=== PATIENT | male | born 1965 | race Caucasian/White ===

== ENCOUNTER → 2016-05-21 | Outpatient (REF) | payer OTHER | LOC: M LAB REF 12:46 | PROVIDERS: ATTEND Internal Medicine Nephrology | DX: Z94.0 Kidney transplant status (principal) ==

== ENCOUNTER → 2016-06-21 | Outpatient (REF) | payer OTHER | LOC: M LAB REF 13:00 | PROVIDERS: ATTEND Internal Medicine Nephrology | DX: Z94.0 Kidney transplant status (principal) ==

== ENCOUNTER → 2016-08-14 | Outpatient (REF) | payer OTHER | LOC: M LAB REF 13:16 | PROVIDERS: ATTEND Internal Medicine Nephrology | DX: Z94.0 Kidney transplant status (principal) ==

== ENCOUNTER → 2016-11-12 | Outpatient (REF) | payer OTHER | LOC: M LAB REF 10:44 | PROVIDERS: ATTEND Internal Medicine Nephrology | DX: Z94.0 Kidney transplant status (principal); Z48.22 Encounter for aftercare following kidney transplant; E78.00 Pure hypercholesterolemia, unspecified ==

== ENCOUNTER → 2016-12-05 | Outpatient (REF) | payer OTHER | LOC: M LAB REF 08:05 | PROVIDERS: ATTEND Internal Medicine Nephrology | DX: E78.00 Pure hypercholesterolemia, unspecified (principal); Z48.22 Encounter for aftercare following kidney transplant ==

== ENCOUNTER → 2017-01-03 | Outpatient (CLI) | payer OTHER ==
[2017-01-03 13:01] LABS: BASO % 0.7 % (0.0-1.0); EOS # 0.2 10^3/uL (0.0-0.50); EOS % 2.9 % (0.0-3.0); IMMATURE GRANULOCYTE % 0.2 % (0-0); LYMPH # 0.9 10^3/uL (1.5-4.5); LYMPH % 15.8 % (24.0-44.0); MEAN CORPUSCULAR HEMOGLOBIN 31.4 pg (27.0-33.0); MEAN CORPUSCULAR HGB CONC 33.9 g/dl (32.0-36.5); MEAN CORPUSCULAR VOLUME 92.6 fl (80.0-96.0); MONO # 0.7 10^3/uL (0.0-0.8); MONO % 11.6 % (0.0-5.0); NEUTROPHILS # 4.1 10^3/uL (1.8-7.7); NEUTROPHILS % 68.8 % (36.0-66.0); PLATELET COUNT, AUTOMATED 169 10^3/uL (150-450); RED CELL DISTRIBUTION WIDTH 12.8 % (11.5-14.5); WHITE BLOOD COUNT 5.9 10^3/uL (4.0-10.0)
[2017-01-03 14:33] LABS: ALBUMIN 3.4 GM/DL (3.2-5.2); ANION GAP 10 MEQ/L (8-16); BLOOD UREA NITROGEN 24 MG/DL (7-18); CALCIUM LEVEL 9.3 MG/DL (8.5-10.1); CARBON DIOXIDE LEVEL 26 MEQ/L (21-32); CHLORIDE LEVEL 105 MEQ/L (98-107); CHOLESTEROL LEVEL 153 MG/DL (<200); CREATININE FOR GFR 1.17 MG/DL (0.70-1.30); GLOMERULAR FILTRATION RATE > 60.0 (>60); GLUCOSE, FASTING 120 MG/DL (70-105); PHOSPHORUS LEVEL 2.5 MG/DL (2.5-4.9); POTASSIUM SERUM 3.7 MEQ/L (3.5-5.1); SODIUM LEVEL 141 MEQ/L (136-145); TRIGLYCERIDES LEVEL 193 MG/DL (<150)
== END ==
LOC: M SMT 08:11
PROVIDERS: ATTEND Internal Medicine Nephrology
DX: E78.00 Pure hypercholesterolemia, unspecified (principal); Z94.0 Kidney transplant status; Z48.22 Encounter for aftercare following kidney transplant

== ENCOUNTER → 2017-05-02 | Outpatient (REF) | payer OTHER ==
[2017-05-02 14:23] LABS: CHOLESTEROL LEVEL 190 MG/DL (<200); CHOLESTEROL RISK RATIO 5.277 (<5); HDL CHOLESTEROL 36 MG/DL (>40); NON-HDL-C 154 MG/DL; TRIGLYCERIDES LEVEL 375 MG/DL (<150)
[2017-05-05 00:06] LABS: FK 506 (TACROLIMUS) LABCORP 3.7 ng/mL (2.0-20.0)
== END ==
LOC: M LAB REF 13:46
DX: Z94.0 Kidney transplant status (principal); Z48.22 Encounter for aftercare following kidney transplant; E78.00 Pure hypercholesterolemia, unspecified

== ENCOUNTER → 2017-09-22 | Outpatient (REF) | payer OTHER ==
[2017-09-22 13:48] LABS: CHOLESTEROL LEVEL 172 MG/DL (<200); CHOLESTEROL RISK RATIO 4.526 (<5); HDL CHOLESTEROL 38 MG/DL (>40); NON-HDL-C 134 MG/DL; TRIGLYCERIDES LEVEL 275 MG/DL (<150)
[2017-09-25 00:09] LABS: FK 506 (TACROLIMUS) LABCORP 3.5 ng/mL (2.0-20.0)
== END ==
LOC: M LAB REF 13:14
DX: E78.00 Pure hypercholesterolemia, unspecified (principal); Z94.0 Kidney transplant status

== ENCOUNTER → 2018-01-28 | Outpatient (REF) | payer OTHER ==
[2018-01-30 14:13] LABS: FK 506 (TACROLIMUS) LABCORP 2.3 ng/mL (2.0-20.0)
== END ==
LOC: M LAB REF 13:07
DX: Z94.0 Kidney transplant status (principal)

== ENCOUNTER → 2018-02-09 | Outpatient (REF) | payer OTHER ==
[2018-02-09 17:46] LABS: TOTAL PROTEIN,RANDOM URINE 90.8 MG/DL (0.0-12.0)
[2018-02-09 17:46] LABS: CREATININE,RANDOM URINE 97.7 MG/DL
== END ==
LOC: M LAB REF 17:04
DX: R80.9 Proteinuria, unspecified (principal)

== ENCOUNTER → 2018-05-12 | Outpatient (REF) | payer OTHER ==
[2018-05-12 14:33] LABS: CHOLESTEROL RISK RATIO 5.058 (<5)
== END ==
LOC: M LAB REF 13:02
PROVIDERS: ATTEND Internal Medicine Nephrology
DX: Z94.0 Kidney transplant status (principal); Z48.22 Encounter for aftercare following kidney transplant; E78.00 Pure hypercholesterolemia, unspecified

== ENCOUNTER → 2018-07-07 | Outpatient (REF) | payer OTHER ==
[2018-07-07 16:10] LABS: ALBUMIN 3.4 GM/DL (3.2-5.2); BILIRUBIN,DIRECT 0.1 MG/DL (0.0-0.2); BILIRUBIN,TOTAL 0.6 MG/DL (0.2-1.0); TOTAL PROTEIN 6.7 GM/DL (6.4-8.2)
== END ==
LOC: M LAB REF 12:59
PROVIDERS: ATTEND Internal Medicine Nephrology
DX: Z94.0 Kidney transplant status (principal); Z48.22 Encounter for aftercare following kidney transplant; R80.9 Proteinuria, unspecified

== ENCOUNTER → 2018-07-15 | Outpatient (REF) | payer OTHER | LOC: M LAB REF 17:15 | PROVIDERS: ATTEND Internal Medicine Nephrology | DX: Z94.0 Kidney transplant status (principal) ==

== ENCOUNTER → 2018-08-27 | Outpatient (REF) | payer OTHER ==
[2018-08-27 13:41] LABS: ALBUMIN 3.8 GM/DL (3.2-5.2); BILIRUBIN,DIRECT 0.1 MG/DL (0.0-0.2); BILIRUBIN,TOTAL 0.5 MG/DL (0.2-1.0); TOTAL PROTEIN 7.2 GM/DL (6.4-8.2)
== END ==
LOC: M LAB REF 13:13
PROVIDERS: ATTEND Internal Medicine Nephrology
DX: Z48.22 Encounter for aftercare following kidney transplant (principal); Z94.0 Kidney transplant status; R80.9 Proteinuria, unspecified

== ENCOUNTER → 2018-10-20 | Outpatient (REF) | payer OTHER | LOC: M LAB REF 12:58 | PROVIDERS: ATTEND Internal Medicine Nephrology | DX: Z94.0 Kidney transplant status (principal) ==

== ENCOUNTER → 2018-11-19 | Outpatient (REF) | payer OTHER | LOC: M LAB REF 12:52 | PROVIDERS: ATTEND Internal Medicine Nephrology | DX: Z94.0 Kidney transplant status (principal) ==

== ENCOUNTER → 2018-12-25 | Outpatient (REF) | payer OTHER | LOC: M LAB REF 12:41 | PROVIDERS: ATTEND Internal Medicine Nephrology | DX: Z94.0 Kidney transplant status (principal) ==

== ENCOUNTER → 2019-01-21 | Outpatient (REF) | payer OTHER | LOC: M LAB REF 13:18 | PROVIDERS: ATTEND Internal Medicine Nephrology | DX: Z94.0 Kidney transplant status (principal) ==

== ENCOUNTER → 2019-02-18 | Outpatient (REF) | payer OTHER | LOC: M LAB REF 13:46 | PROVIDERS: ATTEND Internal Medicine Nephrology | DX: Z94.0 Kidney transplant status (principal) ==

== ENCOUNTER → 2019-03-26 | Outpatient (REF) | payer OTHER ==
[2019-03-26 15:01] LABS: ALBUMIN 3.5 GM/DL (3.2-5.2); BLOOD UREA NITROGEN 22 MG/DL (7-18); CALCIUM LEVEL 9.2 MG/DL (8.5-10.1); CARBON DIOXIDE LEVEL 26 MEQ/L (21-32); CHLORIDE LEVEL 109 MEQ/L (98-107); CREATININE FOR GFR 0.98 MG/DL (0.70-1.30); GLOMERULAR FILTRATION RATE > 60.0 (>56); GLUCOSE, FASTING 85 MG/DL (70-100); MAGNESIUM LEVEL 1.7 MG/DL (1.8-2.4); POTASSIUM SERUM 4.1 MEQ/L (3.5-5.1); SODIUM LEVEL 142 MEQ/L (136-145); URIC ACID 7.8 MG/DL (3.5-7.2)
== END ==
LOC: M LAB REF 13:59
PROVIDERS: ATTEND Internal Medicine Nephrology
DX: Z48.22 Encounter for aftercare following kidney transplant (principal); I15.0 Renovascular hypertension; I48.0 Paroxysmal atrial fibrillation; E83.42 Hypomagnesemia

== ENCOUNTER → 2019-05-13 | Outpatient (REF) | payer OTHER ==
[2019-05-14 11:03] LABS: URINE TOTAL PROTEIN 76.7 MG/DL (0-12)
[2019-05-15 01:11] LABS: TOTAL PROTEIN 24 HOUR URINE 1418.9 MG/24HR (50-150)
== END ==
LOC: M LAB REF 09:49
PROVIDERS: ATTEND Nurse Practitioner Family
DX: Z94.0 Kidney transplant status (principal); R80.9 Proteinuria, unspecified

== ENCOUNTER 2019-05-18 13:53 | Inpatient (IN) | payer OTHER ==
[~2019-05-18] VITALS: Ht 172.7 cm; Wt 75.1 kg
[2019-05-18] MEDS ORDERED: CEFD1CAP8 PO (14:05)
[2019-05-18 15:21] LABS: HEMATOCRIT 37.5 % (42.0-52.0); HEMOGLOBIN 12.9 g/dl (13.5-17.5); MEAN CORPUSCULAR HEMOGLOBIN 31.9 pg (27.0-33.0); MEAN CORPUSCULAR HGB CONC 34.4 g/dl (32.0-36.5); MEAN CORPUSCULAR VOLUME 92.6 fl (80.0-96.0); PLATELET COUNT, AUTOMATED 178 10^3/uL (150-450); RED BLOOD COUNT 4.05 10^6/uL (4.30-6.10); WHITE BLOOD COUNT 7.5 10^3/uL (4.0-10.0)
[2019-05-18 15:47] LABS: BLOOD UREA NITROGEN 31 MG/DL (7-18); CALCIUM LEVEL 9.1 MG/DL (8.5-10.1); CARBON DIOXIDE LEVEL 26 MEQ/L (21-32); CHLORIDE LEVEL 111 MEQ/L (98-107); CREATININE FOR GFR 1.14 MG/DL (0.70-1.30); GLOMERULAR FILTRATION RATE > 60.0 (>56); GLUCOSE, FASTING 117 MG/DL (70-100); POTASSIUM SERUM 4.5 MEQ/L (3.5-5.1); SODIUM LEVEL 139 MEQ/L (136-145)
[2019-05-18 16:06] LABS: C REACTIVE PROTEIN QUANTITATIV < 0.30 MG/DL (0.00-0.30)
[2019-05-18 17:00] LABS: ERYTHROCYTE SEDIMENTATION RATE 34 mm/hr (0-20)
--- NOTE | 2019-05-18 17:11 | REP ---
RIGHT HAND SERIES, FOUR VIEWS: Four views right hand performed. There is an old fracture of the mid scaphoid bone. There is no bony bridging with sclerotic margins along the fracture line and persistent lucency. There appears to be a small osseous fragment at the lateral margin of the fracture. This measures about 5 to 6 mm. No acute fracture or dislocation is seen. Joint spaces appear unremarkable. 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 No acute fracture or dislocation. Electronically Signed by Jacob Lopez MD 05/18/2019 08:02 P
[2019-05-18] MEDS ORDERED: POTA10CA32 PO (18:03)
[2019-05-18] MEDS ORDERED: PRED5TA PO (18:03)
[2019-05-18] MEDS ORDERED: VITAD1000T PO (18:03)
[2019-05-18] MEDS ORDERED: CAND16TA7 PO (18:03)
[2019-05-18] MEDS ORDERED: ROCA0.5C PO (18:03)
[2019-05-18] MEDS ORDERED: MAGN1CAP PO (18:03)
[2019-05-18] MEDS ORDERED: MYCO500T PO (18:03)
[2019-05-18] MEDS ORDERED: TAMS1CAP17 PO (18:03)
[2019-05-18] MEDS ORDERED: METO1TAB87 PO (18:03)
[2019-05-18] MEDS ORDERED: ASPI81TA26 PO (18:03)
[2019-05-18] MEDS ORDERED: VITMTA PO (18:03)
[2019-05-18] MEDS ORDERED: CINA30TA5 PO (18:03)
[2019-05-18] MEDS ORDERED: TACR1CAP3 PO (18:03)
[2019-05-18 18:46] VITALS: BP 140/95
--- NOTE | 2019-05-18 19:15 | HPEPDOC ---
General Date of Admission 05/18/19 Date of Service: May 18, 2019 Chief Complaint The patient is a 54-year-old male admitted with a reason for visit of Hand Problem. Source: Patient History of Present Illness 54 year old male presented to the ED with increasing pain and swelling of the right hand. Patient sustained an injury with a ranch 2weeks ago at the tip of the middle finger of the right hand which has now healed. He noted swelling of the finger about 5 days after sustaining the cut. Swelling of the finger started 10 days ago which spread to the hand. He was prescribed cefdinir by Dr Leiva which he took for 5 days and today was the last day of antibiotic but today noted the swelling has increased along with the pain. He is having difficulty in bending the fingers so came to the ED. He was admitted for hand cellulitis in an immunocompromised patient who failed oral outpatient antibiotics. Home Medications Scheduled Aspirin (Aspirin EC) 81 Mg Tablet.dr, 162 MG PO QHS, (Reported) Calcitriol (Rocaltrol) 0.5 Mcg Capsule, 0.5 MCG PO Q2D, (Reported) PATIENT CANNOT REMEMBER IF HE TOOK TODAY OR DUE TOMORROW Candesartan Cilexetil (Candesartan Cilexetil) 16 Mg Tablet, 16 MG PO QHS, (Reported) Cefdinir (Cefdinir) 300 Mg Capsule, 300 MG PO BID, (Reported) FILLED 05/12/19 FOR 7 DAYS Cholecalciferol (Vitamin D3) (Vitamin D3) 1,000 Unit Tablet, 1,000 UNITS PO DAILY, (Reported) Cinacalcet HCl (Cinacalcet HCl) 30 Mg Tablet, 30 MG PO QWEEK, (Reported) SUNDAYS Magnesium Oxide (Magnesium) 500 Mg Capsule, 1,000 MG PO DAILY, (Reported) Metoprolol Tartrate (Metoprolol Tartrate) 25 Mg Tablet, 50 MG PO DAILY, (Reported) Multivitamins (Thera M Plus Tablet) 1 Each Tablet, 1 TAB PO DAILY, (Reported) Mycophenolate Mofetil (Mycophenolate Mofetil) 500 Mg Tablet, 500 MG PO QID, (Reported) Potassium Chloride (Potassium Chloride) 10 Meq Capsule.er, 10 MEQ PO QHS, (Reported) Prednisone (Prednisone) 5 Mg Tablet, 5 MG PO DAILY, (Reported) Tacrolimus (Tacrolimus) 1 Mg Capsule, 2 MG PO BID, (Reported) Tamsulosin Hcl (Tamsulosin HCl) 0.4 Mg Capsule, 0.4 MG PO QHS, (Reported) Allergies Coded Allergies: codeine (Verified Allergy, Unknown, 05/18/19) morphine (Verified Allergy, Unknown, 05/18/19) Past Medical History Medical History 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 First at the age of 22 years in 1987, last in 2009. Recurrence of FSGS in transplanted kidneys leading to recurrent failure. Hypertension GERD. Surgical History 5 kidney transplants Ruptured gallbladder s/p exploratory laparotomy Inguinal hernia tonsillectomy Family History Significant Family History: Diabetes (father) Social History * Smoker: Denies Alcohol: occationally Drugs: denies A-FIB/CHADSVASC A-FIB History Current/History of A-Fib/PAF?: No Review of Systems Constitutional: Denies: Chills, Fever, Night Sweats Eyes: Denies: Pain, Vision change ENT: Denies: Head Aches, Ear Pain, Dysphagia Skin: Denies: Rash, Lesions, Breakdown Pulmonary: Denies: Dyspnea, Cough Cardiovascular: Denies: Chest Pain, Palpitations, Orthopnea, Paroxysmal Noc. Dyspnea, Lt Headedness Gastrointestinal: Denies: Nausea, Vomiting, Abdominal Pain, Diarrhea Musculoskeletal: Reports: Hand Pain (right hand pain and swelling) Neurological: Denies: Weakness, Numbness, Change in speech, Confusion Physical Examination General Exam: Positive: Alert, Cooperative, No Acute Distress Eye Exam: Positive: PERRLA, Conjunctiva & lids normal, EOMI; Negative: Sclera icteric ENT Exam: Positive: Atraumatic, Mucous membr. moist/pink, Pharynx Normal Neck Exam: Positive: Supple; Negative: JVD, thyromegaly Chest Exam: Positive: Clear to auscultation, Normal air movement Heart Exam: Positive: Rate Normal, Regular Rhythm, Normal S1, Normal S2; Negative: Murmurs, Rubs Abdomen Exam: Positive: Normal bowel sounds, Soft; Negative: Tenderness, Hepatospenomegaly Extremity Exam: Positive: Edema (in right hand), Normal pulses, Tenderness (right hand), Swelling (right hand swelling); Negative: Clubbing, Cyanosis Skin Exam: Positive: Lesion (healed cut in the middle finger right hand) Neuro Exam: Positive: Normal Gait, Normal Speech, Cranial Nerves 3-12 NL, Reflexes 2+ Psych Exam: Positive: Mental status NL, Mood NL, Oriented x 3 Vital Signs Vital Signs Date Time Temp Pulse Resp B/P (MAP) Pulse Ox O2 Delivery O2 Flow Rate FiO2 05/18/19 13:53 98.6 89 16 139/81 (100) 97 Room Air Laboratory Data Labs 24H Laboratory Tests 2 05/18/19 15:01: Nucleated Red Blood Cells % (auto) 0.0, Erythrocyte Sedimentation Rate 34H, Anion Gap 2L, Glomerular Filtration Rate > 60.0, Calcium Level 9.1, C-Reactive Protein, Quantitative < 0.30 CBC/BMP Laboratory Tests 05/18/19 15:01 Assessment/Plan Right hand cellulitis will give ceftaroline Xray shows old scaphoid fracture. Patient says he broke it as a teenager. Renal transplant status continue mycophenolate, tacro and prednisone Hypertension continue metoprolol and candesartan h/o Atrial flutter s/p ablation continue ASA BPH continue flomax Electrolyte imbalance now normal continue mag and k Plan / VTE VTE Prophylaxis Ordered?: Yes FELICITA JIM MD May 18, 2019 17:28
[2019-05-18] MEDS ORDERED: TAMSULOSIN 0.4 MG CAP PO SCH (21:00)
[2019-05-18] MEDS ORDERED: POTASSIUM CHLORIDE 10 MEQ SR TABLET PO SCH (21:00)
[2019-05-18] MEDS ORDERED: ASPIRIN 81 MG ENTERIC TAB PO SCH (21:00)
[2019-05-18] MEDS ORDERED: CANDESARTAN 16 MG TABLET PO SCH (21:00)
[2019-05-18] MEDS: CEFTAROLINE FOSAMIL 600 MG in D5W MINI-BAG PLUS 50 ML IV SCH (21:07)
[2019-05-18] MEDS: MYCOPHENOLATE MOFETIL 250 MG CAP (J7517) PO SCH (21:10)
[2019-05-18] MEDS: TACROLIMUS 1 MG CAP (J7507) PO SCH (21:10)
[2019-05-18 22:00] VITALS: BP 120/85
[2019-05-18] MEDS ORDERED: ACETAMINOPHEN TAB 650MG DOSE (2X325MG) PO PRN (22:15)
[2019-05-19] MEDS: ACETAMINOPHEN TAB 650MG DOSE (2X325MG) PO PRN ×2 (02:24→06:26)
[2019-05-19 06:00] VITALS: BP 120/84
[2019-05-19] MEDS ORDERED: predniSONE 5 MG TAB PO SCH (09:00)
[2019-05-19] MEDS ORDERED: MULTIVITAMINS/MINERALS THERAP 1 TAB PO SCH (09:00)
[2019-05-19] MEDS ORDERED: METOPROLOL TART 50 MG TAB PO SCH (09:00)
[2019-05-19] MEDS ORDERED: MAGNESIUM OXIDE 400 MG TAB (MAG-OX) PO SCH (09:00)
[2019-05-19] MEDS ORDERED: VITAMIN D 1,000 INTERNATIONAL UNITS TABLET PO SCH (09:00)
[2019-05-19] MEDS: CEFTAROLINE FOSAMIL 600 MG in D5W MINI-BAG PLUS 50 ML IV SCH ×2 (09:10→18:02)
[2019-05-19 09:11] VITALS: BP 120/84
[2019-05-19] MEDS: MYCOPHENOLATE MOFETIL 250 MG CAP (J7517) PO SCH ×3 (09:11→18:02)
[2019-05-19] MEDS: TACROLIMUS 1 MG CAP (J7507) PO SCH (09:12)
--- NOTE | 2019-05-19 11:10 | CR ---
DATE OF CONSULTATION: 05/19/2019 CHIEF COMPLAINT: Right hand redness and swelling. The patient presents after being admitted to the hospital after having a 1-1/2 week long right hand swelling and pain. Patient said it initially started with his middle finger. Says he sustained an injury about 2 weeks prior to the tip of the middle finger that is now healed, but he noticed some swelling about 5 days after the cut. He went to his primary care and had 5 days of antibiotics; however, this did not help the swelling and actually progressed up to encompass his whole hand. Says the pain is only mildly, only about a 3 or 4 out of 10, that is constant, dull ache that is made worse when he moves the fingers. Denies any significant fevers, chills, nausea, vomiting, or drainage. He is, of note, an immune-compromised individual status post kidney transplant. The pain is improved with rest and pain medication. ALLERGIES: The patient has allergy to CODEINE and MORPHINE. MEDICATIONS: - aspirin - calcitriol - candesartan - cefdinir - vitamin D3 - cinacalcet - magnesium oxide - metoprolol - multivitamins - mycophenolate - potassium chloride - prednisone - tacrolimus - tamsulosin PAST MEDICAL HISTORY: FSGS leading to end-stage renal disease (ESRD) at age 20. Status post five kidney transplants, last one in 2009. Hypertension. Gastroesophageal reflux disease (GERD). PAST SURGICAL HISTORY: Five kidney transplants. Ruptured gallbladder. Inguinal hernia. Tonsillectomy. SOCIAL HISTORY: Denies any smoking. Occasional alcohol. Denies illicit drug use. Complete 10-system review was conducted. Pertinent positives and negatives in the history of present illness (HPI). All other systems negative. PHYSICAL EXAM: Patient is awake, alert, oriented. Well dressed. Appropriate affect. Breathing room air. Normocephalic, atraumatic. Left upper extremity: No tenderness to palpation throughout the fingers, wrist, and elbow. Skin is intact. Range of motion, full. Radial pulses 2+ and regular rate. Sensation intact to light touch, superficial sensory branch of radial nerve, median nerve, and ulnar nerve. Positive anterior interosseous nerve (AIN)/posterior interosseous nerve (PIN) to ulnar motor function. Right upper extremity: Diffuse swelling throughout the right hand, most significantly in the middle finger and over the dorsum of the hand. Unable to make a fist due to swelling. Mainly tender to palpation along the middle finger and dorsum of the hand. No tenderness to palpation along the flexor sheath. Minimal erythema at this point. Positive AIN, PIN ulnar motor function. Sensation intact to light touch, superficial sensory branch of radial nerve, median nerve, and ulnar nerve. Radial pulses 2+, regular rate. Skin is intact. LABORATORY: White blood cell count 7.5, hemoglobin 12.9, hematocrit 37.5, platelets 175. ESR 34, and CRP of less than 0.30. 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 I discussed with the patient, at this point in time, I think he is responding appropriately to intravenous (IV) antibiotics. Hopefully, he can be converted over to by mouth antibiotics and, hopefully, discharged later today or the next day. I am not concerned at all for possible tenosynovitis or any sort of fluctuance or abscess that would require drainage. He can followup with his primary care as an outpatient. If he has any questions or concerns with orthopedics, would be more than happy to see him; denies any. We discussed any red flags symptoms to be aware of and the need to return to the emergency room (ER). Patient expressed understanding and agreed with this plan.
[2019-05-19 13:12] VITALS: BP 121/84
--- NOTE | 2019-05-19 13:23 | CR ---
DATE OF SERVICE: 05/19/2019 REQUESTING PHYSICIAN: Dr. Ramonita Maria CONSULTING PHYSICIAN: Dr. Frias REASON FOR CONSULTATION: Management of renal allograft immunosuppression. CHIEF COMPLAINT: The patient presented to the hospital with pain and swelling in the right hand. HISTORY OF PRESENT ILLNESS: Mr. Vishnu Vick is a 54-year-old male with past medical history of end-stage renal disease secondary to focal segmental glomerulosclerosis (FSGS) requiring five kidney transplants so far, latest transplant was done in 2009 at [facility] in [facility]. He follows up with Dr. Leiva as outpatient in nephrology clinic. He had a puncture wound in his right middle finger about 2 weeks ago for that he saw Dr. Leiva and he was prescribed cefdinir which he took of 5 days but it did not help with the swelling says his pain and swelling was getting worse so he presented to the emergency room. He was found to have cellulitis in the right hand and he is already immunocompromised because of the renal allograft status. He was admitted under the hospitalist service. He was started on IV ceftaroline. Nephrology service was called for further help in the management of this patient because of renal allograft status. I saw and evaluated the patient today morning at the bedside. He reports that since getting ceftaroline overnight his pain and swelling is getting better today. He is afebrile and hemodynamically stable. PAST MEDICAL HISTORY: Past medical history of end-stage renal disease since 20 years of age secondary to FSGS. He is status post five kidney transplants, four of them failed, fifth one is almost 10 years old, it was in 2010 at [facility], history of hypertension, gastroesophageal reflux disease. PAST SURGICAL HISTORY: Status post five kidney transplants, status post ruptured gallbladder surgery, expiratory laparotomy, inguinal hernia and status post tonsillectomy. ALLERGIES: The patient is allergic to CODEINE and MORPHINE. FAMILY HISTORY: There is a positive family history of diabetes in the father. SOCIAL HISTORY: The patient denies any smoking, illicit drug abuse or alcohol abuse. REVIEW OF SYSTEMS: Constitutional: The patient denies any fevers or chills. Eyes: He denies any blurry vision or double vision. ENT: He denies any dysphagia or odynophagia. Cardiovascular: He denies any chest pain or palpitation. Respiratory: He denies any shortness of breath or cough. GI: He denies any nausea or vomiting. Genitourinary: He denies any dysuria or hematuria. Musculoskeletal: He reports right middle finger pain and swelling. Skin: He denies any rashes or ulcerations. Psych: He denies any depression or anxiety. Hematology/Oncology: He denies any easy bleeding or bruising. All other review of system is negative. PHYSICAL EXAMINATION: General: The patient is awake, alert, oriented times three, sitting up in the bed in no apparent distress. Vital signs: Temperature is 98.9 degrees Fahrenheit, blood pressure 120/84, pulse is 84, respiratory of 19, saturating 97% on room air. Head and neck exam extraocular muscles intact. Pupils equally round and reactive to light. Mucous membranes are moist. Neck is supple. There is no jugular venous distention (JVD). Cardiovascular: S1, S2, regular rate. No edema of the bilateral lower extremities. Respiratory: Chest is clear to auscultation bilaterally. Bilateral equal air entry. No rales or rhonchi. Abdomen: Soft, positive bowel sounds. Nontender. Old midline laparotomy scar and scars in the groin. Renal allograft is on nontender. Musculoskeletal: No clubbing or cyanosis. The patient has mild swelling and tenderness to deep palpation in the right middle finger. AUTO INSPECTOR: No focal deficit. Power is 5/5 in all extremities. Skin: No rashes or ulcers. LAB REVIEW: CBC showed a WBC 7.5, hemoglobin 12.9, platelets of 178. BMP showed sodium 139, potassium 4.5, chloride 111, bicarb 26, BUN 31, creatinine is 1.1. Imaging and x-ray of the right hand was done yesterday which showed old ununited fracture in the mid scaphoid, no acute fracture or dislocation. CURRENT INPATIENT MEDICATIONS: The patient's medications were all reviewed by myself. He is currently on ceftaroline 600 mg IV every 12 hourly, Tylenol as needed, aspirin 162 mg at bedtime, candesartan 16 mg at bedtime, magnesium oxide 800 mg by mouth daily, metoprolol 50 mg by mouth daily, multivitamin, Cellcept 500 mg by mouth four times a day, potassium chloride 10 mg at bedtime, prednisone 5 mg daily, tacrolimus 2 mg by mouth twice a day, Flomax 0.4 mg at bedtime, and vitamin D 1000 units by mouth daily. ASSESSMENT: 54-year-old male with past medical history of FSGS requiring five kidney transplants so far. His latest renal allograft has good function. He is admitted this time because of right hand cellulitis. PLAN: 1. Right hand cellulitis. The patient was given ceftraloine, his swelling is getting better. Primary team is planning to give him Dalvance as outpatient after discharge. It is okay to continue the current immunosuppression because cellulitis is improving with current antibiotic. 2. Renal allograft status. Continue home dose of CellCept, prednisone and tacrolimus at this time. Renal function is stable. Creatinine is at 1.1. 3. Hypertension. Continue current dose of candesartan 16 mg, metoprolol 50 mg daily. Blood pressure is within the acceptable range. 4. Hypomagnesemia. The patient has immunosuppression medication includes hypomagnesemia. Continue home dose of magnesium 89 mg by mouth daily. 5. Chronic kidney disease stage 2. Patient's renal function is stable, creatinine is at 1.1 which is close to his baseline. Thank you for involving me in the care of this patient. I shall be happy to follow the patient along with you tomorrow morning.
--- NOTE | 2019-05-25 19:04 | DS.PDOC ---
Discharge Summary General Date of Admission May 18, 2019 at 18:02 Date of Discharge 05/19/19 Discharge Summary PROCEDURES PERFORMED DURING STAY: [None]. DISCHARGE DIAGNOSES: Right hand cellulitis Old right scaphoid fracture Renal Allograft status Stage 2 CKD Electrolyte immbalance corrected. 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 First at the age of 22 years in 1987, last in 2009. Recurrence of FSGS in transplanted kidneys leading to recurrent failure. Hypertension GERD. BPH Ruptured gallbladder s/p exploratory laparotomy COMPLICATIONS/CHIEF COMPLAINT: Cellulitis Right Hand; S/P Renal Transplant. HISTORY OF PRESENT ILLNESS: See history and physical HOSPITAL COURSE: 54 year old male presented to the ED with increasing pain and swelling of the right hand. Patient sustained an injury with a ranch 2weeks ago at the tip of the middle finger of the right hand which has now healed. He noted swelling of the finger about 5 days after sustaining the cut. Swelling of the finger started 10 days ago which spread to the hand. He was prescribed cefdinir by Dr Leiva which he took for 5 days and today was the last day of antibiotic but today noted the swelling has increased along with the pain. He is having difficulty in bending the fingers so came to the ED. He was admitted for hand cellulitis in an immunocompromised patient who failed oral outpatient antibiotics. Right hand cellulitis recieved ceftaroline for 24 hours then discharged with 1 dose of Dalvance at home on 05/20/19 Xray shows old scaphoid fracture. Patient says he broke it as a teenager. Renal transplant status continue mycophenolate, tacro and prednisone Hypertension continue metoprolol and candesartan h/o Atrial flutter s/p ablation continue ASA BPH continue flomax Electrolyte imbalance now normal continue mag and k DISCHARGE MEDICATIONS: Please see below. ALLERGIES: Please see below. PHYSICAL EXAMINATION ON DISCHARGE: VITAL SIGNS: Please see below. General Exam: Positive: Alert, Cooperative, No Acute Distress Eye Exam: Positive: PERRLA, Conjunctiva & lids normal, EOMI; Negative: Sclera icteric ENT Exam: Positive: Atraumatic, Mucous membr. moist/pink, Pharynx Normal Neck Exam: Positive: Supple; Negative: JVD, thyromegaly Chest Exam: Positive: Clear to auscultation, Normal air movement Heart Exam: Positive: Rate Normal, Regular Rhythm, Normal S1, Normal S2; Negative: Murmurs, Rubs Abdomen Exam: Positive: Normal bowel sounds, Soft; Negative: Tenderness, Hepatospenomegaly Extremity Exam: Positive: Edema (in right hand), Normal pulses, Tenderness (right hand), Swelling (right hand swelling); Negative: Clubbing, Cyanosis Skin Exam: Positive: Lesion (healed cut in the middle finger right hand) Neuro Exam: Positive: Normal Gait, Normal Speech, Cranial Nerves 3-12 NL, Reflexes 2+ Psych Exam: Positive: Mental status NL, Mood NL, Oriented x 3 LABORATORY DATA: Please see below. ACTIVITY: [As tolerated]. DIET: Regular DISPOSITION: 01 Home, Self-Care. DISCHARGE INSTRUCTIONS: Follow up nephrology in 1 week Follow up PMD in 1 week DISCHARGE CONDITION: [Stable]. TIME SPENT ON DISCHARGE: 35 minutes. Vital Signs/I&Os Vital Signs Date Time Temp Pulse Resp B/P (MAP) Pulse Ox O2 Delivery O2 Flow Rate FiO2 05/19/19 13:12 97.8 82 19 121/84 (96) 97 Room Air Laboratory Data CBC/BMP Vital Signs Label Value Date Time Patient Temperature 97.8 degrees F 05/19/19 1312 Temperature Source Oral 05/19/19 1312 Pulse 82 05/19/19 1312 Respiratory Rate 19 bpm 05/19/19 1312 Blood Pressure Assessment 121/84 (96) 05/19/19 1312 Bedside Pulse Oximetry 97 % 05/19/19 1312 Item Value Date Time White Blood Count 7.5 10^3/uL 05/18/19 1501 Red Blood Count 4.05 10^6/uL L 05/18/19 1501 Hemoglobin 12.9 g/dl L 05/18/19 1501 Hematocrit 37.5 % L 05/18/19 1501 Mean Corpuscular Volume 92.6 fl 05/18/19 1501 Mean Corpuscular Hemoglobin 31.9 pg 05/18/19 1501 Mean Corpuscular Hemoglobin Concent 34.4 g/dl 05/18/19 1501 Red Cell Distribution Width 13.1 % 05/18/19 1501 Platelet Count 178 10^3/uL 05/18/19 1501 Nucleated Red Blood Cells % (auto) 0.0 % 05/18/19 1501 Erythrocyte Sedimentation Rate 34 mm/hr H 05/18/19 1501 Sodium Level 139 MEQ/L 05/18/19 1501 Potassium Level 4.5 MEQ/L 05/18/19 1501 Chloride Level 111 MEQ/L H 05/18/19 1501 Carbon Dioxide Level 26 MEQ/L 05/18/19 1501 Anion Gap 2 MEQ/L L 05/18/19 1501 Blood Urea Nitrogen 31 MG/DL H 05/18/19 1501 Creatinine 1.14 MG/DL 05/18/19 1501 Glomerular Filtration Rate > 60.0 05/18/19 1501 Fasting Glucose 117 MG/DL H 05/18/19 1501 Calcium Level 9.1 MG/DL 05/18/19 1501 C-Reactive Protein, Quantitative < 0.30 MG/DL 05/18/19 1501 Discharge Medications Scheduled Aspirin (Aspirin EC) 81 Mg Tablet.dr, 162 MG PO QHS, (Reported) Calcitriol (Rocaltrol) 0.5 Mcg Capsule, 0.5 MCG PO Q2D, (Reported) PATIENT CANNOT REMEMBER IF HE TOOK TODAY OR DUE TOMORROW Candesartan Cilexetil (Candesartan Cilexetil) 16 Mg Tablet, 16 MG PO QHS, (Reported) Cholecalciferol (Vitamin D3) (Vitamin D3) 1,000 Unit Tablet, 1,000 UNITS PO DAILY, (Reported) Cinacalcet HCl (Cinacalcet HCl) 30 Mg Tablet, 30 MG PO QWEEK, (Reported) SUNDAYS Magnesium Oxide (Magnesium) 500 Mg Capsule, 1,000 MG PO DAILY, (Reported) Metoprolol Tartrate (Metoprolol Tartrate) 25 Mg Tablet, 50 MG PO DAILY, (Reported) Multivitamins (Thera M Plus Tablet) 1 Each Tablet, 1 TAB PO DAILY, (Reported) Mycophenolate Mofetil (Mycophenolate Mofetil) 500 Mg Tablet, 500 MG PO QID, (Reported) Potassium Chloride (Potassium Chloride) 10 Meq Capsule.er, 10 MEQ PO QHS, (Reported) Prednisone (Prednisone) 5 Mg Tablet, 5 MG PO DAILY, (Reported) Tacrolimus (Tacrolimus) 1 Mg Capsule, 2 MG PO BID, (Reported) Tamsulosin Hcl (Tamsulosin HCl) 0.4 Mg Capsule, 0.4 MG PO QHS, (Reported) Allergies Coded Allergies: codeine (Verified Allergy, Unknown, 05/18/19) morphine (Verified Allergy, Unknown, 05/18/19) FELICITA JIM MD May 25, 2019 19:04
== END 2019-05-19 19:41 | disposition home or self-care (01) | DRG 603 ==
LOC: M ED 13:53 → M ED INP 18:02 → ENRESERV 18:25 → M MS5PR 18:40
PROVIDERS: ADMIT Internal Medicine Nephrology; ATTEND Internal Medicine Nephrology
DX: L03.113 Cellulitis of right upper limb (principal); Z94.0 Kidney transplant status; I48.92 Unspecified atrial flutter; N18.2 Chronic kidney disease, stage 2 (mild); I12.9 Hypertensive chronic kidney disease with stage 1 through stage 4 chronic kidney disease, or unspecified chronic kidney disease; Z88.5 Allergy status to narcotic agent; K21.9 Gastro-esophageal reflux disease without esophagitis; N40.0 Benign prostatic hyperplasia without lower urinary tract symptoms; Z79.82 Long term (current) use of aspirin; Z79.899 Other long term (current) drug therapy; E83.42 Hypomagnesemia; Z87.81 Personal history of (healed) traumatic fracture; I48.91 Unspecified atrial fibrillation

== ENCOUNTER → 2019-06-18 | Outpatient (REF) | payer OTHER ==
[~2019-06-18] MED LIST: ASPI81TA26 PO; CAND16TA7 PO; CEFD1CAP8 PO; CINA30TA5 PO; MAGN1CAP PO; METO1TAB87 PO; MYCO500T PO; POTA10CA32 PO; PRED5TA PO; ROCA0.5C PO; TACR1CAP3 PO; TAMS1CAP17 PO; VITAD1000T PO; VITMTA PO
== END ==
LOC: M LAB REF 13:07
PROVIDERS: ATTEND Internal Medicine Nephrology
DX: Z94.0 Kidney transplant status (principal)

== ENCOUNTER → 2019-07-26 | Outpatient (REF) | payer OTHER | LOC: M LAB REF 16:44 | PROVIDERS: ATTEND Internal Medicine Nephrology | DX: Z79.899 Other long term (current) drug therapy (principal); Z94.0 Kidney transplant status ==

== ENCOUNTER → 2020-01-21 | Outpatient (CLI) | payer OTHER ==
[~2020-01-21] MED LIST changes: +D31000TA2 PO; -VITAD1000T PO
--- NOTE | 2020-01-21 14:03 | REP ---
INDICATION: HEADACHE, UNSPECIFIED. COMPARISON: September 25, 2015.. TECHNIQUE: Helical scanning is acquired. 5 mm axial images were reformatted. Coronal MPR images were generated. FINDINGS: Bone window settings demonstrate an intact bony calvarium. There is no evidence of skull fracture or incidental bony calvarial lesion. The visualized paranasal sinuses appear clear. No intraorbital abnormality is seen. On soft tissue window setting images; the lateral, third, and fourth ventricles are normal in size and position. Lopez-white differentiation pattern is normal above and below the tentorium. There are is no evidence of intracranial hemorrhage. No mass, edema, infarction, or midline shift is seen. No extra-axial fluid collection is appreciated. There is minimal vascular calcification in the distal internal carotid arteries. IMPRESSION: Minimal vascular calcification. Otherwise negative noncontrast head CT. No acute intracranial abnormality.. <Electronically signed by Steven Camarillo > 01/21/20 [id number]
== END ==
LOC: M RAD 13:19
PROVIDERS: ATTEND Internal Medicine Nephrology
DX: R51.9 Headache, unspecified (principal); Z94.0 Kidney transplant status

== ENCOUNTER → 2020-01-24 | Outpatient (REF) | payer OTHER | LOC: M LAB REF 16:44 | PROVIDERS: ATTEND Internal Medicine Nephrology | DX: Z94.0 Kidney transplant status (principal) ==

== ENCOUNTER → 2020-02-21 | Outpatient (REF) | payer OTHER | LOC: M LAB REF 17:19 | PROVIDERS: ATTEND Internal Medicine Nephrology | DX: Z94.0 Kidney transplant status (principal) ==

== ENCOUNTER → 2020-04-17 | Outpatient (REF) | payer OTHER ==
[2020-04-17 19:03] LABS: MAU/CREAT RATIO 1017.6 MCG/MG (0.0-30.0)
== END ==
LOC: M LAB REF 16:43
PROVIDERS: ATTEND Internal Medicine Nephrology
DX: Z94.0 Kidney transplant status (principal); Z48.22 Encounter for aftercare following kidney transplant; R80.9 Proteinuria, unspecified; I15.0 Renovascular hypertension

== ENCOUNTER → 2020-05-16 | Outpatient (REF) | payer OTHER | LOC: M LAB REF 16:38 | PROVIDERS: ATTEND Internal Medicine Nephrology | DX: Z94.0 Kidney transplant status (principal) ==

== ENCOUNTER → 2020-06-27 | Outpatient (REF) | payer OTHER | LOC: M LAB REF 16:51 | PROVIDERS: ATTEND Internal Medicine Nephrology | DX: Z94.0 Kidney transplant status (principal) ==

== ENCOUNTER → 2020-08-16 | Outpatient (REF) | payer OTHER | LOC: M LAB REF 16:42 | PROVIDERS: ATTEND Internal Medicine Nephrology | DX: Z94.0 Kidney transplant status (principal) ==

== ENCOUNTER → 2020-09-14 | Outpatient (REF) | payer OTHER | LOC: M LAB REF 17:11 | PROVIDERS: ATTEND Internal Medicine Nephrology | DX: Z94.0 Kidney transplant status (principal) ==

== ENCOUNTER → 2020-11-16 | Outpatient (REF) | payer OTHER | LOC: M LAB REF 13:03 | PROVIDERS: ATTEND Internal Medicine Nephrology | DX: Z94.0 Kidney transplant status (principal) ==

== ENCOUNTER → 2020-12-29 | Outpatient (REF) | payer OTHER ==
[2020-12-29 13:23] LABS: INR 0.97; PROTHROMBIN TIME 13.3 SECONDS (12.7-14.5)
== END ==
LOC: M LAB REF 13:03
PROVIDERS: ATTEND Internal Medicine Nephrology
DX: Z94.0 Kidney transplant status (principal); N04.8 Nephrotic syndrome with other morphologic changes

== ENCOUNTER → 2021-01-05 | Outpatient (REF) | payer OTHER ==
[2021-01-05 13:41] LABS: INR 0.92; PROTHROMBIN TIME 12.8 SECONDS (12.7-14.5)
[2021-01-05 14:12] LABS: ALT/SGPT 33 U/L (12-78); BILIRUBIN,TOTAL 0.4 MG/DL (0.2-1.0); BLOOD UREA NITROGEN 24 MG/DL (7-18); CALCIUM LEVEL 8.6 MG/DL (8.5-10.1); CARBON DIOXIDE LEVEL 27 MEQ/L (21-32); CHLORIDE LEVEL 110 MEQ/L (98-107); CREATININE FOR GFR 1.12 MG/DL (0.70-1.30); GLOMERULAR FILTRATION RATE > 60.0 (>56); GLUCOSE, FASTING 91 MG/DL (70-100); POTASSIUM SERUM 4.7 MEQ/L (3.5-5.1); SODIUM LEVEL 141 MEQ/L (136-145); TOTAL PROTEIN 5.8 GM/DL (6.4-8.2)
[2021-01-08 10:21] LABS: ALBUMIN % 53.4 % (55.8-66.1); ALPHA-1-GLOBULINS 0.29 GM/DL (0.17-0.41); ALPHA-2-GLOBULINS 0.79 GM/DL (0.42-0.99); ALPHA-2-GLOBULINS % 13.6 % (7.1-11.8); BETA-1-GLOBULINS 0.36 GM/DL (0.28-0.60); BETA-1-GLOBULINS % 6.2 % (4.7-7.2); BETA-2-GLOBULINS % 6.9 % (3.2-6.5); GAMMA GLOBULINS 0.86 GM/DL (0.65-1.58)
[2021-01-08 10:22] LABS: GAMMA GLOBULIN % 14.9 % (11.1-18.8)
[2021-01-08 11:44] LABS: ALBUMIN 2.5 GM/DL (3.2-5.2)
== END ==
LOC: M LAB REF 13:02
PROVIDERS: ATTEND Otolaryngology
DX: Z94.0 Kidney transplant status (principal); D84.9 Immunodeficiency, unspecified; N18.6 End stage renal disease; R80.9 Proteinuria, unspecified

== ENCOUNTER → 2021-01-08 | Outpatient (REF) | payer OTHER ==
[2021-01-08 18:38] LABS: BASO % 0.3 % (0.0-1.0); EOS # 0.1 10^3/uL (0.0-0.5); EOS % 0.9 % (0.0-3.0); HEMATOCRIT 37.5 % (42.0-52.0); HEMOGLOBIN 12.4 g/dl (13.5-17.5); LYMPH # 0.9 10^3/uL (1.5-5.0); LYMPH % 11.1 % (24.0-44.0); MEAN CORPUSCULAR HEMOGLOBIN 32.1 pg (27.0-33.0); MEAN CORPUSCULAR HGB CONC 33.1 g/dl (32.0-36.5); MEAN CORPUSCULAR VOLUME 97.2 fl (80.0-96.0); MONO # 0.7 10^3/uL (0.0-0.8); MONO % 8.5 % (2.0-8.0); NEUTROPHILS # 6.2 10^3/uL (1.5-8.5); NEUTROPHILS % 78.9 % (36.0-66.0); PLATELET COUNT, AUTOMATED 169 10^3/uL (150-450); RED BLOOD COUNT 3.86 10^6/uL (4.30-6.10); WHITE BLOOD COUNT 7.9 10^3/uL (4.0-10.0)
[2021-01-08 18:50] LABS: INR 0.99; PROTHROMBIN TIME 13.5 SECONDS (12.7-14.5)
[2021-01-08 19:44] LABS: ALBUMIN 2.4 GM/DL (3.2-5.2); ALT/SGPT 32 U/L (12-78); BILIRUBIN,TOTAL 0.3 MG/DL (0.2-1.0); BLOOD UREA NITROGEN 31 MG/DL (7-18); CALCIUM LEVEL 9.2 MG/DL (8.5-10.1); CARBON DIOXIDE LEVEL 27 MEQ/L (21-32); CHLORIDE LEVEL 111 MEQ/L (98-107); CREATININE FOR GFR 1.08 MG/DL (0.70-1.30); GLOMERULAR FILTRATION RATE > 60.0 (>56); GLUCOSE, FASTING 109 MG/DL (70-100); POTASSIUM SERUM 4.3 MEQ/L (3.5-5.1); SODIUM LEVEL 142 MEQ/L (136-145); TOTAL PROTEIN 5.4 GM/DL (6.4-8.2)
[2021-01-08 20:10] LABS: TOTAL PROTEIN,RANDOM URINE 411.6 MG/DL (0.0-12.0)
== END ==
LOC: M LAB REF 17:35
PROVIDERS: ATTEND Internal Medicine Nephrology
DX: N05.1 Unspecified nephritic syndrome with focal and segmental glomerular lesions (principal); Z94.0 Kidney transplant status

== ENCOUNTER → 2021-03-19 | Outpatient (REF) | payer OTHER ==
[2021-03-19 18:40] LABS: TOTAL PROTEIN,RANDOM URINE 539.8 MG/DL (0.0-12.0)
== END ==
LOC: M LAB REF 17:07
PROVIDERS: ATTEND Internal Medicine Nephrology
DX: R80.9 Proteinuria, unspecified (principal)

== ENCOUNTER → 2021-04-12 | Outpatient (REF) | payer OTHER ==
[~2021-04-12] MED LIST changes: +CAND16TA17 PO; -CAND16TA7 PO; -CEFD1CAP8 PO; +CEFD300C41 PO
== END ==
LOC: M LAB REF 13:09
PROVIDERS: ATTEND Internal Medicine Nephrology
DX: R80.9 Proteinuria, unspecified (principal); Z48.22 Encounter for aftercare following kidney transplant

== ENCOUNTER → 2021-05-23 | Outpatient (REF) | payer OTHER ==
[~2021-05-23] MED LIST changes: -D31000TA2 PO; +VITA100093 PO
[2021-05-23 18:39] LABS: HEPATITIS B CORE ANTIBODY IGM NEGATIVE (NEGATIVE); HEPATITIS B SURFACE ANTIBODY NEGATIVE (POSITIVE); HEPATITIS B SURFACE ANTIGEN NEGATIVE (NEGATIVE); HEPATITIS C VIRUS ABY INDEX 0.4 INDEX (<0.8)
== END ==
LOC: M LAB REF 16:51
PROVIDERS: ATTEND Internal Medicine Nephrology
DX: Z94.0 Kidney transplant status (principal); R80.9 Proteinuria, unspecified

== ENCOUNTER → 2021-05-23 | Outpatient (REF) | payer OTHER ==
[2021-05-23 18:47] LABS: TOTAL PROTEIN,RANDOM URINE 803.9 MG/DL (0.0-12.0)
== END ==
LOC: M LAB REF 16:52
PROVIDERS: ATTEND Internal Medicine Nephrology
DX: R80.9 Proteinuria, unspecified (principal); Z48.22 Encounter for aftercare following kidney transplant

== ENCOUNTER 2021-06-18 08:25 | Outpatient (CLI) | payer OTHER ==
[2021-06-18] VITALS (9 sets, daily range): BP systolic 124–158; BP diastolic 72–89
[~2021-06-18] VITALS: Ht 172.7 cm; Wt 71.7 kg
[~2021-06-18 08:25] MED LIST changes: +ALBUTEROL SULFATE 2.5 MG/0.5 ML INH NEB SOLN INH PRN; +EPINEPHrine INJ 1 MG/ML 1ML AMP IM PRN; +NS 1,000 ML IV SCH; +NS IV ONE; +RITUXIMAB PVVR IV ONE; +diphenhydrAMINE 50MG/ML VIAL (J1200) IV ONE; +diphenhydrAMINE 50MG/ML VIAL (J1200) IV PRN; +methylPREDNISolone 125MG 2ML VIAL IV ONE; +methylPREDNISolone 125MG 2ML VIAL IV PRN
[2021-06-18] MEDS ORDERED: ONDANSETRON 4MG/2ML VIAL IV ONE (10:30)
== END 2021-06-18 15:15 | disposition home or self-care (01) ==
LOC: M INFU 08:25
PROVIDERS: ATTEND Internal Medicine Nephrology
DX: N04.9 Nephrotic syndrome with unspecified morphologic changes (principal); Z88.5 Allergy status to narcotic agent; Z88.6 Allergy status to analgesic agent
CPT/HCPCS: 96365; 96366; J1200; J2405; J2930; Q5119

== ENCOUNTER → 2021-06-20 | Outpatient (REF) | payer OTHER ==
[~2021-06-20] MED LIST changes: -ALBUTEROL SULFATE 2.5 MG/0.5 ML INH NEB SOLN INH PRN; -EPINEPHrine INJ 1 MG/ML 1ML AMP IM PRN; -NS 1,000 ML IV SCH; -NS IV ONE; -RITUXIMAB PVVR IV ONE; -diphenhydrAMINE 50MG/ML VIAL (J1200) IV ONE; -diphenhydrAMINE 50MG/ML VIAL (J1200) IV PRN; -methylPREDNISolone 125MG 2ML VIAL IV ONE; -methylPREDNISolone 125MG 2ML VIAL IV PRN
[2021-06-20 17:53] LABS: CREATININE,RANDOM URINE 37.2 MG/DL; TOTAL PROTEIN,RANDOM URINE 238.2 MG/DL (0.0-12.0)
== END ==
LOC: M LAB REF 17:04
PROVIDERS: ATTEND Internal Medicine Nephrology
DX: R80.9 Proteinuria, unspecified (principal); Z48.22 Encounter for aftercare following kidney transplant

== ENCOUNTER 2021-07-02 08:28 | Outpatient (CLI) | payer OTHER ==
[2021-07-02] VITALS (7 sets, daily range): BP systolic 128–151; BP diastolic 74–84
[~2021-07-02] VITALS: Ht 172.7 cm; Wt 72.3 kg
[~2021-07-02 08:28] MED LIST changes: +ALBUTEROL SULFATE 2.5 MG/0.5 ML INH NEB SOLN INH PRN; +EPINEPHrine INJ 1 MG/ML 1ML AMP IM PRN; +ONDANSETRON 4MG/2ML VIAL IV ONE; +diphenhydrAMINE 50MG/ML VIAL (J1200) IV PRN; +methylPREDNISolone 125MG 2ML VIAL IV PRN
[2021-07-02] MEDS ORDERED: NS 1,000 ML IV SCH (08:30)
[2021-07-02] MEDS ORDERED: RITUXIMAB PVVR IV ONE (08:30)
[2021-07-02] MEDS ORDERED: NS IV ONE (08:30)
[2021-07-02] MEDS ORDERED: diphenhydrAMINE 50MG/ML VIAL (J1200) IV ONE (08:30)
[2021-07-02] MEDS ORDERED: methylPREDNISolone 125MG 2ML VIAL IV ONE (08:30)
== END 2021-07-02 14:10 | disposition home or self-care (01) ==
LOC: M INFU 08:28
PROVIDERS: ATTEND Internal Medicine Nephrology
DX: N04.9 Nephrotic syndrome with unspecified morphologic changes (principal); Z88.5 Allergy status to narcotic agent; Z88.6 Allergy status to analgesic agent
CPT/HCPCS: 96367; 96413; 96415; J1200; J2405; J2930; Q5119

== ENCOUNTER → 2021-07-18 | Outpatient (REF) | payer OTHER ==
[~2021-07-18] MED LIST changes: -ALBUTEROL SULFATE 2.5 MG/0.5 ML INH NEB SOLN INH PRN; -EPINEPHrine INJ 1 MG/ML 1ML AMP IM PRN; -ONDANSETRON 4MG/2ML VIAL IV ONE; -diphenhydrAMINE 50MG/ML VIAL (J1200) IV PRN; -methylPREDNISolone 125MG 2ML VIAL IV PRN
[2021-07-18 18:26] LABS: CREATININE,RANDOM URINE 74.7 MG/DL; TOTAL PROTEIN,RANDOM URINE 177.2 MG/DL (0.0-12.0)
== END ==
LOC: M LAB REF 17:06
PROVIDERS: ATTEND Internal Medicine Nephrology
DX: R80.9 Proteinuria, unspecified (principal); Z48.22 Encounter for aftercare following kidney transplant

== ENCOUNTER → 2021-08-30 | Outpatient (REF) | payer OTHER ==
[2021-08-30 17:40] LABS: TOTAL PROTEIN,RANDOM URINE 138.4 MG/DL (0.0-12.0)
== END ==
LOC: M LAB REF 16:49
PROVIDERS: ATTEND Internal Medicine Nephrology
DX: R80.9 Proteinuria, unspecified (principal); Z48.22 Encounter for aftercare following kidney transplant

== ENCOUNTER 2021-10-26 13:58 | Observation (INO) | payer OTHER ==
[~2021-10-26] VITALS: Ht 172.7 cm; Wt 68.3 kg
[2021-10-26 15:06] LABS: BASO % 0.3 % (0.0-1.0); EOS % 0.3 % (0.0-3.0); HEMATOCRIT 36.6 % (42.0-52.0); HEMOGLOBIN 12.4 g/dl (13.5-17.5); LYMPH # 0.3 10^3/uL (1.5-5.0); LYMPH % 10.9 % (24.0-44.0); MEAN CORPUSCULAR HEMOGLOBIN 32.1 pg (27.0-33.0); MEAN CORPUSCULAR HGB CONC 33.9 g/dl (32.0-36.5); MEAN CORPUSCULAR VOLUME 94.8 fl (80.0-96.0); MONO # 0.4 10^3/uL (0.0-0.8); MONO % 12.3 % (2.0-8.0); NEUTROPHILS # 2.3 10^3/uL (1.5-8.5); NEUTROPHILS % 75.9 % (36.0-66.0); PLATELET COUNT, AUTOMATED 142 10^3/uL (150-450); RED BLOOD COUNT 3.86 10^6/uL (4.30-6.10)
[2021-10-26 15:20] LABS: INR 0.94; PROTHROMBIN TIME 12.9 SECONDS (12.7-14.5)
[2021-10-26 15:23] LABS: D-DIMER QUANT 1384.1 ng/ml (<500)
[2021-10-26] MEDS ORDERED: NS 1,000 ML IV SCH (15:35)
[2021-10-26 15:39] LABS: ALBUMIN 2.7 GM/DL (3.2-5.2); ALT/SGPT 40 U/L (12-78); BILIRUBIN,DIRECT < 0.1 MG/DL (0.0-0.2); BILIRUBIN,TOTAL 0.3 MG/DL (0.2-1.0); BLOOD UREA NITROGEN 30 MG/DL (7-18); CALCIUM LEVEL 8.4 MG/DL (8.5-10.1); CARBON DIOXIDE LEVEL 25 MEQ/L (21-32); CHLORIDE LEVEL 112 MEQ/L (98-107); CK-MB VALUE MASS < 1.0 NG/ML (<3.6); CPK CREATINE PHOSPHOKINASE 569 U/L (39-308); CREATININE FOR GFR 1.03 MG/DL (0.70-1.30); GLOMERULAR FILTRATION RATE > 60.0 (>56); GLUCOSE, FASTING 121 MG/DL (70-100); LIPASE 871 U/L (73-393); MB/CK RELATIVE INDEX 0.18 (< OR =4); POTASSIUM SERUM 5.2 MEQ/L (3.5-5.1); SODIUM LEVEL 139 MEQ/L (136-145)
[2021-10-26] MEDS ORDERED: ISOVUE-370 76% 100ML VIAL As Ordered ONE (15:50)
[2021-10-26 16:46] LABS: CK-MB VALUE MASS < 1.0 NG/ML (<3.6); CPK CREATINE PHOSPHOKINASE 549 U/L (39-308); MB/CK RELATIVE INDEX 0.18 (< OR =4)
[2021-10-26 17:30] LABS: PARTIAL THROMBOPLASTIN TIME 31.5 SECONDS (25.9-37.0)
[2021-10-26] MEDS: NS 1,000 ML IV SCH (18:15)
[2021-10-26 18:37] LABS: RSV AMPLIFICATION NEGATIVE (NEGATIVE)
[2021-10-26] MEDS ORDERED: ACETAMINOPHEN TAB 650MG DOSE (2X325MG) PO PRN (18:50)
[2021-10-26] MEDS ORDERED: ALBUTEROL SULFATE 2.5 MG/0.5 ML INH NEB SOLN NEB PRN (18:50)
[2021-10-26] MEDS ORDERED: CAND32TA18 PO (18:51)
[2021-10-26] MEDS ORDERED: ALLO100T PO (18:51)
[2021-10-26] MEDS ORDERED: MAGN500T12 PO (18:51)
[2021-10-26] MEDS ORDERED: METO1TAB87 PO (18:51)
[2021-10-26] MEDS ORDERED: HOME MED LIST COMPLETE! XX SCH (18:55)
[2021-10-26 20:45] VITALS: BP 144/91
[2021-10-26] MEDS ORDERED: METOPROLOL TART 25 MG TABLET PO SCH (21:00)
[2021-10-26] MEDS ORDERED: TAMSULOSIN 0.4 MG CAP PO SCH (21:00)
[2021-10-26] MEDS: TACROLIMUS 1 MG CAP (J7507) PO SCH (22:00)
[2021-10-26] MEDS: MYCOPHENOLATE MOFETIL 250 MG CAP (J7517) PO SCH (22:00)
[2021-10-26] MEDS: allopurinoL 100 MG TAB PO SCH (22:02)
[2021-10-26] MEDS: APIXABAN 5 MG TAB (ELIQUIS) PO SCH (22:02)
[2021-10-27] MEDS: NS 1,000 ML IV SCH (00:25)
[2021-10-27 06:00] VITALS: BP 124/84
[2021-10-27 06:16] LABS: HEMOGLOBIN 11.3 g/dl (13.5-17.5); MEAN CORPUSCULAR HEMOGLOBIN 31.8 pg (27.0-33.0); MEAN CORPUSCULAR HGB CONC 33.2 g/dl (32.0-36.5); MEAN CORPUSCULAR VOLUME 95.8 fl (80.0-96.0); PLATELET COUNT, AUTOMATED 123 10^3/uL (150-450); RED BLOOD COUNT 3.55 10^6/uL (4.30-6.10)
[2021-10-27 06:48] LABS: ALBUMIN 2.4 GM/DL (3.2-5.2); ALT/SGPT 32 U/L (12-78); BILIRUBIN,TOTAL 0.2 MG/DL (0.2-1.0); BLOOD UREA NITROGEN 23 MG/DL (7-18); CALCIUM LEVEL 8.1 MG/DL (8.5-10.1); CARBON DIOXIDE LEVEL 20 MEQ/L (21-32); CHLORIDE LEVEL 117 MEQ/L (98-107); GLOMERULAR FILTRATION RATE > 60.0 (>56); GLUCOSE, FASTING 91 MG/DL (70-100); POTASSIUM SERUM 4.7 MEQ/L (3.5-5.1); SODIUM LEVEL 142 MEQ/L (136-145); TOTAL PROTEIN 5.1 GM/DL (6.4-8.2)
[2021-10-27] MEDS ORDERED: ELIQ5TAB PO (08:09)
[2021-10-27] MEDS ORDERED: MULTIVITAMINS/MINERALS THERAP 1 TAB PO SCH (09:00)
[2021-10-27] MEDS ORDERED: CALCITRIOL 0.25 MCG CAP (S0169) PO SCH (09:00)
[2021-10-27] MEDS ORDERED: predniSONE 5 MG TAB PO SCH (09:00)
[2021-10-27] MEDS ORDERED: METOPROLOL TART 25 MG TABLET PO SCH (09:00)
[2021-10-27] MEDS ORDERED: VITAMIN D 1,000 INTERNATIONAL UNITS TABLET PO SCH (09:00)
[2021-10-27 09:36] VITALS: BP 132/78
[2021-10-27] MEDS: MYCOPHENOLATE MOFETIL 250 MG CAP (J7517) PO SCH (09:36)
[2021-10-27] MEDS: TACROLIMUS 1 MG CAP (J7507) PO SCH (09:36)
[2021-10-27] MEDS: allopurinoL 100 MG TAB PO SCH (09:37)
[2021-10-27] MEDS: APIXABAN 5 MG TAB (ELIQUIS) PO SCH (09:37)
[2021-10-29] MEDS ORDERED: CINACALCET 30 MG TAB (SENSIPAR) PO SCH (09:00)
== END 2021-10-27 11:24 | disposition home or self-care (01) ==
LOC: M ED 13:58 → M ED INP 18:15 → ENRESERV 18:49 → M MSPAV 20:43
PROVIDERS: ADMIT Internal Medicine; ATTEND Internal Medicine
DX: I26.99 Other pulmonary embolism without acute cor pulmonale (principal); R19.7 Diarrhea, unspecified; I10 Essential (primary) hypertension; E05.90 Thyrotoxicosis, unspecified without thyrotoxic crisis or storm; N04.1 Nephrotic syndrome with focal and segmental glomerular lesions; Z79.52 Long term (current) use of systemic steroids; N40.0 Benign prostatic hyperplasia without lower urinary tract symptoms; Z88.5 Allergy status to narcotic agent; Z79.01 Long term (current) use of anticoagulants; Z79.899 Other long term (current) drug therapy; Z94.0 Kidney transplant status
CPT/HCPCS: 36415; 71046; 71275; 80048; 80053; 80076; 82550; 82553; 83690; 84484; 85025; 85027; 85379; 85610; 85730; 87631; 93005; 93041; 94760; 96360; 96361; 99285; J7507; J7512; J7517; Q9967

== ENCOUNTER → 2022-01-18 | Outpatient (REF) | payer OTHER ==
[~2022-01-18] MED LIST changes: +ALLO100T PO; +CAND32TA18 PO; +ELIQ5TAB PO; +MAGN500T12 PO
== END ==
LOC: M LAB REF 17:31
PROVIDERS: ATTEND Internal Medicine
DX: Z12.5 Encounter for screening for malignant neoplasm of prostate (principal)

== ENCOUNTER 2022-08-19 16:23 | Inpatient (IN) | payer OTHER ==
[~2022-08-19] VITALS: Ht 172.7 cm; Wt 70.5 kg
[~2022-08-19 16:23] MED LIST changes: -POTA10CA32 PO; +POTA10CA33 PO
[2022-08-19 19:51] VITALS: BP 165/96; TEMP 98.2; O2SAT 98
[2022-08-19 19:53] VITALS: O2SAT 98
[2022-08-19 20:15] VITALS: O2SAT 96
[2022-08-19] MEDS: fentaNYL 100 MCG/2 ML INJECTION IV PRN (21:05)
[2022-08-19] MEDS ORDERED: PILL CUTTER 1 EACH XX PRN (21:05)
[2022-08-19] MEDS: NS 1,000 ML IV SCH (21:06)
[2022-08-19] MEDS: SIMETHICONE 80MG CHEW TAB PO SCH (21:57)
[2022-08-19] MEDS ORDERED: MAGN400T35 PO (22:32)
[2022-08-19] MEDS ORDERED: HOME MED LIST COMPLETE! XX SCH (22:35)
[2022-08-19] MEDS: ONDANSETRON 4MG 2ML VIAL IV PRN (23:54)
[2022-08-19 23:58] VITALS: BP 160/95; TEMP 98.1; O2SAT 95
[2022-08-20] VITALS (26 sets, daily range): BP systolic 139–166; BP diastolic 85–104; TEMP 97.6–98.4; O2SAT 92–98
[2022-08-20] MEDS: METOPROLOL 5 MG/5 ML VIAL IV SCH ×2 (00:02→05:51)
[2022-08-20] MEDS ORDERED: diphenhydrAMINE 50MG/ML VIAL IV ONE (00:15)
[2022-08-20] MEDS ORDERED: PROMETHAZINE 25MG/ML 1ML VIAL IV PRN (02:05)
[2022-08-20] MEDS: fentaNYL 100 MCG/2 ML INJECTION IV PRN ×2 (02:28→05:49)
[2022-08-20 06:02] LABS: HEMATOCRIT 39.9 % (42.0-52.0); HEMOGLOBIN 13.7 g/dl (13.5-17.5); MEAN CORPUSCULAR HEMOGLOBIN 32.4 pg (27.0-33.0); MEAN CORPUSCULAR HGB CONC 34.3 g/dl (32.0-36.5); MEAN CORPUSCULAR VOLUME 94.3 fl (80.0-96.0); PLATELET COUNT, AUTOMATED 179 10^3/uL (150-450); RED BLOOD COUNT 4.23 10^6/uL (4.30-6.10)
[2022-08-20] MEDS: NS 1,000 ML IV SCH ×2 (06:15→17:37)
[2022-08-20 06:36] LABS: ALKALINE PHOSPHATASE 61 U/L (46-116); ALT/SGPT 24 U/L (7.0-40); AST/SGOT 16 U/L (<34); BLOOD UREA NITROGEN 22 MG/DL (9-23); CALCIUM LEVEL 9.2 MG/DL (8.5-10.1); CARBON DIOXIDE LEVEL 26 MMOL/L (20-31); CHLORIDE LEVEL 108 MMOL/L (98-107); CREATININE FOR GFR 1.12 MG/DL (0.70-1.30); GLOMERULAR FILTRATION RATE > 60.0 (>56); GLUCOSE, FASTING 108 MG/DL (60-100); MAGNESIUM LEVEL 1.7 MG/DL (1.8-2.4); SODIUM LEVEL 141 MMOL/L (136-145)
[2022-08-20] MEDS ORDERED: MAG SULF 1GM/100ML (MAG RUN) 1 GM in IV 1 EA IV ONE ×2 (07:25→11:15)
[2022-08-20] MEDS ORDERED: HYDROmorphone HCL 2MG/ML 1ML VIAL IV PRN (07:55)
[2022-08-20] MEDS: SIMETHICONE 80MG CHEW TAB PO SCH ×4 (08:17→20:13)
[2022-08-20] MEDS: HYDROMORPHONE HCL 0.5 MG/ 0.5 ML SYRINGE IV PRN ×5 (08:18→23:03)
[2022-08-20] MEDS ORDERED: ENOXAPARIN 40MG/0.4ML SYRINGE (J1650 PER 10MG) SC SCH (09:00)
[2022-08-20] MEDS: MYCOPHENOLATE MOFETIL 250 MG CAP (J7517) PO SCH ×2 (11:24→20:13)
[2022-08-20] MEDS: TACROLIMUS 1MG CAP PO SCH ×2 (11:24→20:13)
[2022-08-20] MEDS: ONDANSETRON 4MG 2ML VIAL IV PRN (11:59)
[2022-08-20] MEDS ORDERED: methylPREDNISolone 125MG 2ML VIAL IV ONE (12:00)
[2022-08-20] MEDS: predniSONE 5 MG TAB PO SCH (12:26)
[2022-08-20] MEDS: METOPROLOL TART 50 MG TAB PO SCH (12:27)
[2022-08-20] MEDS: METOPROLOL TART 25 MG TABLET PO SCH (20:13)
[2022-08-21] VITALS (21 sets, daily range): BP systolic 158–170; BP diastolic 86–98; TEMP 97–99.2; O2SAT 92–97
[2022-08-21] MEDS: NS 1,000 ML IV SCH ×3 (02:52→21:26)
[2022-08-21] MEDS: HYDROMORPHONE HCL 0.5 MG/ 0.5 ML SYRINGE IV PRN ×4 (02:52→19:53)
[2022-08-21 06:45] LABS: HEMATOCRIT 41.5 % (42.0-52.0); MEAN CORPUSCULAR HEMOGLOBIN 32.5 pg (27.0-33.0); MEAN CORPUSCULAR HGB CONC 33.7 g/dl (32.0-36.5); MEAN CORPUSCULAR VOLUME 96.3 fl (80.0-96.0); PLATELET COUNT, AUTOMATED 202 10^3/uL (150-450); RED BLOOD COUNT 4.31 10^6/uL (4.30-6.10); WHITE BLOOD COUNT 15.2 10^3/uL (4.0-10.0)
[2022-08-21 07:09] LABS: ALBUMIN 2.8 G/DL (3.2-5.2); BILIRUBIN,TOTAL 0.9 MG/DL (0.3-1.2); CALCIUM LEVEL 8.6 MG/DL (8.5-10.1); CREATININE FOR GFR 1.36 MG/DL (0.70-1.30); GLOMERULAR FILTRATION RATE 57.9 (>56); MAGNESIUM LEVEL 2.2 MG/DL (1.8-2.4); POTASSIUM SERUM 4.7 MMOL/L (3.5-5.1); TOTAL PROTEIN 5.7 G/DL (5.7-8.2)
[2022-08-21] MEDS: SIMETHICONE 80MG CHEW TAB PO SCH ×5 (07:59→21:25)
[2022-08-21] MEDS: predniSONE 5 MG TAB PO SCH ×2 (08:09→09:49)
[2022-08-21] MEDS: MYCOPHENOLATE MOFETIL 250 MG CAP (J7517) PO SCH ×3 (08:09→21:27)
[2022-08-21] MEDS: METOPROLOL TART 50 MG TAB PO SCH (09:49)
[2022-08-21] MEDS: TACROLIMUS 1MG CAP PO SCH ×2 (09:50→21:27)
[2022-08-21] MEDS: HEPARIN SOD (PORCINE) 5000UNITS/ML 1ML VIAL/SYRINGE SQ SCH ×2 (14:29→22:31)
[2022-08-21] MEDS: METOPROLOL TART 25 MG TABLET PO SCH (21:27)
[2022-08-21] MEDS: TAMSULOSIN 0.4 MG CAP PO SCH (21:27)
[2022-08-22] VITALS (19 sets, daily range): BP systolic 124–162; BP diastolic 72–98; TEMP 97.2–98.1; O2SAT 90–97
[2022-08-22] MEDS: HYDROMORPHONE HCL 0.5 MG/ 0.5 ML SYRINGE IV PRN ×2 (00:42→12:33)
[2022-08-22] MEDS: NS 1,000 ML IV SCH ×4 (04:07→20:56)
[2022-08-22 05:48] LABS: HEMATOCRIT 37.6 % (42.0-52.0); HEMOGLOBIN 12.7 g/dl (13.5-17.5); MEAN CORPUSCULAR HEMOGLOBIN 32.6 pg (27.0-33.0); MEAN CORPUSCULAR HGB CONC 33.8 g/dl (32.0-36.5); MEAN CORPUSCULAR VOLUME 96.4 fl (80.0-96.0); PLATELET COUNT, AUTOMATED 165 10^3/uL (150-450); WHITE BLOOD COUNT 10.6 10^3/uL (4.0-10.0)
[2022-08-22 06:09] LABS: ALBUMIN 2.7 G/DL (3.2-5.2); ALKALINE PHOSPHATASE 56 U/L (46-116); ALT/SGPT 17 U/L (7.0-40); AST/SGOT 17 U/L (<34); BLOOD UREA NITROGEN 24 MG/DL (9-23); CALCIUM LEVEL 8.7 MG/DL (8.5-10.1); CARBON DIOXIDE LEVEL 31 MMOL/L (20-31); CHLORIDE LEVEL 107 MMOL/L (98-107); CREATININE FOR GFR 1.19 MG/DL (0.70-1.30); GLOMERULAR FILTRATION RATE > 60.0 (>56); GLUCOSE, FASTING 98 MG/DL (60-100); MAGNESIUM LEVEL 1.8 MG/DL (1.8-2.4); SODIUM LEVEL 145 MMOL/L (136-145); TOTAL PROTEIN 5.5 G/DL (5.7-8.2)
[2022-08-22] MEDS: HEPARIN SOD (PORCINE) 5000UNITS/ML 1ML VIAL/SYRINGE SQ SCH (06:17)
[2022-08-22] MEDS: TACROLIMUS 1MG CAP PO SCH ×2 (09:21→21:37)
[2022-08-22] MEDS: MYCOPHENOLATE MOFETIL 250 MG CAP (J7517) PO SCH ×2 (09:21→21:38)
[2022-08-22] MEDS: SIMETHICONE 80MG CHEW TAB PO SCH ×4 (09:21→21:37)
[2022-08-22] MEDS: METOPROLOL TART 50 MG TAB PO SCH (09:21)
[2022-08-22] MEDS: predniSONE 5 MG TAB PO SCH (09:21)
[2022-08-22] MEDS ORDERED: methylPREDNISolone 125MG 2ML VIAL IV ONE (11:35)
[2022-08-22] MEDS ORDERED: MIDAZOLAM INJ 2MG/2ML VIAL As Ordered ONE (13:23)
[2022-08-22] MEDS ORDERED: fentaNYL 100 MCG/2 ML INJECTION As Ordered ONE (13:23)
[2022-08-22] MEDS ORDERED: ACETAMINOPHEN 1000MG 100ML IV BAG As Ordered ONE (13:23)
[2022-08-22] MEDS ORDERED: SUGAMMADEX SODIUM 500 MG/5 ML VIAL (BRIDION) As Ordered ONE (13:24)
[2022-08-22] MEDS ORDERED: propofoL 200 MG/20 ML VIAL As Ordered ONE (13:24)
[2022-08-22] MEDS ORDERED: ONDANSETRON 4MG 2ML VIAL As Ordered ONE (13:24)
[2022-08-22] MEDS ORDERED: LIDOCAINE 2% 100MG/5ML SDV (FOR ANES.) As Ordered ONE (13:24)
[2022-08-22] MEDS ORDERED: BUPIVACAINE/EPIN 0.25% 30ML VIAL As Ordered ONE (13:31)
[2022-08-22] MEDS ORDERED: HYDROmorphone HCL 2MG/ML 1ML VIAL As Ordered ONE (18:28)
[2022-08-22] MEDS ORDERED: ROCURONIUM BROMIDE 50MG/5ML VIAL As Ordered ONE ×2 (18:30→18:32)
[2022-08-22] MEDS ORDERED: ESMOLOL INJ 100MG/10ML VIAL As Ordered ONE (18:33)
[2022-08-22] MEDS ORDERED: ZOSYN 3.375GM VIAL As Ordered ONE (18:38)
[2022-08-22] MEDS ORDERED: METOPROLOL 5 MG/5 ML VIAL As Ordered ONE (18:57)
[2022-08-22] MEDS ORDERED: fentaNYL 100 MCG/2 ML INJECTION IV PRN (19:25)
[2022-08-22] MEDS ORDERED: ONDANSETRON 4MG 2ML VIAL IV PRN (19:25)
[2022-08-22] MEDS ORDERED: HYDROMORPHONE HCL 0.5 MG/ 0.5 ML SYRINGE IV PRN (19:25)
[2022-08-22] MEDS ORDERED: LR 1,000 ML IV SCH (19:25)
[2022-08-22] MEDS: METOPROLOL TART 25 MG TABLET PO SCH (21:36)
[2022-08-22] MEDS: TAMSULOSIN 0.4 MG CAP PO SCH (21:37)
[2022-08-23] VITALS (14 sets, daily range): BP systolic 134–150; BP diastolic 69–85; TEMP 97.3–98.3; O2SAT 92–98
[2022-08-23] MEDS: NS 1,000 ML IV SCH ×3 (05:19→22:23)
[2022-08-23 05:23] LABS: HEMATOCRIT 34.1 % (42.0-52.0); HEMOGLOBIN 11.4 g/dl (13.5-17.5); MEAN CORPUSCULAR HEMOGLOBIN 32.7 pg (27.0-33.0); MEAN CORPUSCULAR HGB CONC 33.4 g/dl (32.0-36.5); MEAN CORPUSCULAR VOLUME 97.7 fl (80.0-96.0); PLATELET COUNT, AUTOMATED 155 10^3/uL (150-450); RED BLOOD COUNT 3.49 10^6/uL (4.30-6.10); WHITE BLOOD COUNT 9.6 10^3/uL (4.0-10.0)
[2022-08-23 06:02] LABS: ALBUMIN 2.3 G/DL (3.2-5.2); ALKALINE PHOSPHATASE 48 U/L (46-116); ALT/SGPT 19 U/L (7.0-40); AST/SGOT 33 U/L (<34); BILIRUBIN,TOTAL 0.5 MG/DL (0.3-1.2); BLOOD UREA NITROGEN 29 MG/DL (9-23); CALCIUM LEVEL 8.3 MG/DL (8.5-10.1); CARBON DIOXIDE LEVEL 29 MMOL/L (20-31); CHLORIDE LEVEL 108 MMOL/L (98-107); CREATININE FOR GFR 1.12 MG/DL (0.70-1.30); GLOMERULAR FILTRATION RATE > 60.0 (>56); GLUCOSE, FASTING 106 MG/DL (60-100); MAGNESIUM LEVEL 1.7 MG/DL (1.8-2.4); POTASSIUM SERUM 4.3 MMOL/L (3.5-5.1); SODIUM LEVEL 144 MMOL/L (136-145); TOTAL PROTEIN 5.2 G/DL (5.7-8.2)
[2022-08-23] MEDS ORDERED: MAG SULF 1GM/100ML (MAG RUN) 1 GM in IV 1 EA IV ONE (07:25)
[2022-08-23] MEDS: predniSONE 5 MG TAB PO SCH (09:07)
[2022-08-23] MEDS: SIMETHICONE 80MG CHEW TAB PO SCH ×4 (09:07→20:14)
[2022-08-23] MEDS: METOPROLOL TART 50 MG TAB PO SCH (09:08)
[2022-08-23] MEDS: TACROLIMUS 1MG CAP PO SCH ×2 (09:09→20:14)
[2022-08-23] MEDS: MYCOPHENOLATE MOFETIL 250 MG CAP (J7517) PO SCH ×2 (09:09→20:14)
[2022-08-23] MEDS: MAGNESIUM OXIDE 400MG TAB (MAG-OX) PO SCH ×2 (12:03→20:14)
[2022-08-23] MEDS ORDERED: ACETAMINOPHEN TAB 650MG DOSE (2X325MG) PO PRN (12:10)
[2022-08-23] MEDS: HEPARIN SOD (PORCINE) 5000UNITS/ML 1ML VIAL/SYRINGE SQ SCH ×2 (14:13→22:23)
[2022-08-23] MEDS: TAMSULOSIN 0.4 MG CAP PO SCH (20:14)
[2022-08-23] MEDS: METOPROLOL TART 25 MG TABLET PO SCH (20:15)
[2022-08-23] MEDS ORDERED: RAMELTEON 8 MG TAB (ROZEREM) PO PRN (22:05)
[2022-08-24 05:02] VITALS: BP 127/78; TEMP 98.4; O2SAT 96
[2022-08-24] MEDS: NS 1,000 ML IV SCH (05:33)
[2022-08-24] MEDS: HEPARIN SOD (PORCINE) 5000UNITS/ML 1ML VIAL/SYRINGE SQ SCH ×2 (05:34→12:58)
[2022-08-24 06:25] LABS: HEMATOCRIT 33.8 % (42.0-52.0); HEMOGLOBIN 11.1 g/dl (13.5-17.5); MEAN CORPUSCULAR HEMOGLOBIN 32.2 pg (27.0-33.0); MEAN CORPUSCULAR HGB CONC 32.8 g/dl (32.0-36.5); PLATELET COUNT, AUTOMATED 168 10^3/uL (150-450); RED BLOOD COUNT 3.45 10^6/uL (4.30-6.10); WHITE BLOOD COUNT 6.1 10^3/uL (4.0-10.0)
[2022-08-24 06:48] LABS: ALBUMIN 2.5 G/DL (3.2-5.2); ALKALINE PHOSPHATASE 47 U/L (46-116); ALT/SGPT 20 U/L (7.0-40); AST/SGOT 28 U/L (<34); BILIRUBIN,TOTAL 0.7 MG/DL (0.3-1.2); BLOOD UREA NITROGEN 23 MG/DL (9-23); CARBON DIOXIDE LEVEL 28 MMOL/L (20-31); CHLORIDE LEVEL 110 MMOL/L (98-107); CREATININE FOR GFR 1.01 MG/DL (0.70-1.30); GLOMERULAR FILTRATION RATE > 60.0 (>56); GLUCOSE, FASTING 82 MG/DL (60-100); MAGNESIUM LEVEL 1.6 MG/DL (1.8-2.4); POTASSIUM SERUM 3.7 MMOL/L (3.5-5.1); SODIUM LEVEL 144 MMOL/L (136-145); TOTAL PROTEIN 5.2 G/DL (5.7-8.2)
[2022-08-24] MEDS: MYCOPHENOLATE MOFETIL 250 MG CAP (J7517) PO SCH (08:54)
[2022-08-24] MEDS: METOPROLOL TART 50 MG TAB PO SCH (08:55)
[2022-08-24] MEDS: MAGNESIUM OXIDE 400MG TAB (MAG-OX) PO SCH (08:55)
[2022-08-24] MEDS: SIMETHICONE 80MG CHEW TAB PO SCH ×2 (08:55→12:58)
[2022-08-24] MEDS: predniSONE 5 MG TAB PO SCH (08:55)
[2022-08-24] MEDS: TACROLIMUS 1MG CAP PO SCH (08:55)
[2022-08-24] MEDS ORDERED: MAGN400T35 PO (11:47)
[2022-08-24] MEDS ORDERED: MAG SULF 1GM/100ML (MAG RUN) 1 GM in IV 1 EA IV SCH (13:00)
[2022-08-24] MEDS ORDERED: MAGNESIUM OXIDE 400MG TAB (MAG-OX) PO ONE (14:00)
== END 2022-08-24 14:31 | disposition home or self-care (01) | DRG 224 ==
LOC: M PCU 19:28 → M MSPAV 08-23 18:24
PROVIDERS: ADMIT Internal Medicine; ATTEND Internal Medicine
PROC: 0DN84ZZ Release Small Intestine, Percutaneous Endoscopic Approach (ICD-10-PCS; principal; 2022-08-22 17:00)
DX: K56.51 Intestinal adhesions [bands], with partial obstruction (principal); D84.9 Immunodeficiency, unspecified; I12.0 Hypertensive chronic kidney disease with stage 5 chronic kidney disease or end stage renal disease; N18.6 End stage renal disease; N17.9 Acute kidney failure, unspecified; I48.0 Paroxysmal atrial fibrillation; N25.81 Secondary hyperparathyroidism of renal origin; Z94.0 Kidney transplant status; E83.42 Hypomagnesemia; N40.0 Benign prostatic hyperplasia without lower urinary tract symptoms; M19.90 Unspecified osteoarthritis, unspecified site; E78.5 Hyperlipidemia, unspecified; K21.9 Gastro-esophageal reflux disease without esophagitis; D64.9 Anemia, unspecified; M10.9 Gout, unspecified; M85.80 Other specified disorders of bone density and structure, unspecified site; Z98.41 Cataract extraction status, right eye; Z90.49 Acquired absence of other specified parts of digestive tract; Z85.828 Personal history of other malignant neoplasm of skin; Z79.01 Long term (current) use of anticoagulants; Z79.899 Other long term (current) drug therapy; Z88.5 Allergy status to narcotic agent; Z98.42 Cataract extraction status, left eye

== ENCOUNTER → 2023-02-11 | Outpatient (REF) | payer OTHER ==
[~2023-02-11] MED LIST changes: -CEFD300C41 PO; +CEFD300C42 PO; +MAGN400T35 PO; -POTA10CA33 PO; +POTA10CA60 PO
== END ==
LOC: M LAB REF 17:43
PROVIDERS: ATTEND Internal Medicine Nephrology
DX: Z48.22 Encounter for aftercare following kidney transplant (principal); Z94.0 Kidney transplant status

== ENCOUNTER → 2023-04-25 | Outpatient (REF) | payer OTHER ==
[~2023-04-25] MED LIST changes: +CEFD1CAP9 PO; -CEFD300C42 PO
== END ==
LOC: M LAB REF 17:45
PROVIDERS: ATTEND Internal Medicine Nephrology
DX: Z48.22 Encounter for aftercare following kidney transplant (principal); Z94.0 Kidney transplant status

== ENCOUNTER 2023-06-16 07:26 | Outpatient (CLI) | payer BC, OTHER ==
[~2023-06-16] VITALS: Ht 172.7 cm; Wt 74.4 kg
[~2023-06-16 07:26] MED LIST changes: +ALBUTEROL SULFATE 2.5MG/0.5ML INH NEB SOLN INH PRN; +EPINEPHrine INJ 1 MG/ML 1ML AMP IM PRN; +diphenhydrAMINE 50MG/ML VIAL IV PRN; +methylPREDNISolone 125MG 2ML VIAL IV PRN
[2023-06-16 07:30] VITALS: BP 151/85; O2SAT 98
[2023-06-16] MEDS ORDERED: NS 1,000 ML IV SCH (07:30)
[2023-06-16] MEDS: methylPREDNISolone 125MG 2ML VIAL IV ONE (07:41)
[2023-06-16] MEDS: diphenhydrAMINE 50MG/ML VIAL IV ONE (07:41)
[2023-06-16] MEDS: RITUXIMAB IV ONE (08:08)
[2023-06-16] MEDS: NS IV ONE (08:08)
[2023-06-16 08:30] VITALS: BP 128/78; O2SAT 98
[2023-06-16 09:00] VITALS: BP 128/78; O2SAT 97
[2023-06-16 10:00] VITALS: BP 130/79
[2023-06-16 10:55] VITALS: BP 131/79; O2SAT 98
[2023-06-16 12:07] VITALS: BP 134/83; O2SAT 97
== END 2023-06-16 12:15 | disposition home or self-care (01) ==
LOC: M INFU 07:26
PROVIDERS: ATTEND Internal Medicine Nephrology
DX: N04.1 Nephrotic syndrome with focal and segmental glomerular lesions (principal); Z88.1 Allergy status to other antibiotic agents; Z88.5 Allergy status to narcotic agent
CPT/HCPCS: 96365; 96366; 96375; J1200; J2919; J9312

== ENCOUNTER 2023-06-25 10:25 | Outpatient (CLI) | payer BC, OTHER ==
[~2023-06-25] VITALS: Ht 172.7 cm; Wt 75.0 kg
[2023-06-25 10:25] VITALS: BP 145/89; O2SAT 98
[2023-06-25] MEDS ORDERED: NS 1,000 ML IV SCH (10:30)
[2023-06-25] MEDS: diphenhydrAMINE 50MG/ML VIAL IV ONE (10:38)
[2023-06-25] MEDS: methylPREDNISolone 125MG 2ML VIAL IV ONE (10:38)
[2023-06-25] MEDS: NS IV ONE (11:09)
[2023-06-25] MEDS: RITUXIMAB IV ONE (11:09)
[2023-06-25 11:45] VITALS: BP 138/76; O2SAT 100
[2023-06-25 12:15] VITALS: BP 141/85; O2SAT 100
[2023-06-25 12:45] VITALS: BP 145/88; O2SAT 100
== END 2023-06-25 14:00 ==
LOC: M INFU 10:25
PROVIDERS: ATTEND Internal Medicine Nephrology
DX: N04.1 Nephrotic syndrome with focal and segmental glomerular lesions (principal); Z88.1 Allergy status to other antibiotic agents; Z88.5 Allergy status to narcotic agent
CPT/HCPCS: 96375; 96413; 96415; J1200; J2919; J9312

== ENCOUNTER 2023-06-30 09:30 | Outpatient (CLI) | payer BC, OTHER ==
[~2023-06-30] VITALS: Ht 172.7 cm; Wt 70.5 kg
[2023-06-30 09:30] VITALS: BP 136/80; TEMP 98; O2SAT 98
[~2023-06-30 09:30] MED LIST changes: +NS 1,000 ML IV SCH
[2023-06-30 09:35] VITALS: BP 136/80; O2SAT 98
[2023-06-30] MEDS: diphenhydrAMINE 50MG/ML VIAL IV ONE (09:49)
[2023-06-30] MEDS: methylPREDNISolone 125MG 2ML VIAL IV ONE (09:50)
[2023-06-30] MEDS: NS IV ONE (10:25)
[2023-06-30] MEDS: RITUXIMAB IV ONE (10:25)
[2023-06-30 11:00] VITALS: BP 138/89; O2SAT 97
[2023-06-30 11:30] VITALS: BP 151/93; O2SAT 98
[2023-06-30 12:00] VITALS: BP 153/70; O2SAT 98
[2023-06-30 13:05] VITALS: BP 156/78; O2SAT 99
== END 2023-06-30 13:10 ==
LOC: M INFU 09:30
PROVIDERS: ATTEND Internal Medicine Nephrology
DX: N04.1 Nephrotic syndrome with focal and segmental glomerular lesions (principal); Z88.1 Allergy status to other antibiotic agents; Z88.5 Allergy status to narcotic agent
CPT/HCPCS: 96365; 96366; 96375; J1200; J2919; J9312

== ENCOUNTER 2023-07-07 08:10 | Outpatient (CLI) | payer BC, OTHER ==
[2023-07-07 08:10] VITALS: BP 158/90; O2SAT 100
[2023-07-07] MEDS: methylPREDNISolone 125MG 2ML VIAL IV ONE (08:24)
[2023-07-07] MEDS: diphenhydrAMINE 25MG IV PRIOR TO INFUSION IV ONE (08:24)
[2023-07-07] MEDS: RITUXIMAB IV ONE (08:53)
[2023-07-07] MEDS: NS IV ONE (08:53)
[2023-07-07 09:30] VITALS: BP 143/88; O2SAT 98
[2023-07-07 10:00] VITALS: BP 134/85; O2SAT 96
[2023-07-07 10:30] VITALS: BP 139/90; O2SAT 97
[2023-07-07 11:45] VITALS: BP 144/82; O2SAT 98
== END 2023-07-07 11:45 ==
LOC: M INFU 08:10
PROVIDERS: ATTEND Internal Medicine Nephrology
DX: N04.1 Nephrotic syndrome with focal and segmental glomerular lesions (principal); Z88.1 Allergy status to other antibiotic agents; Z88.5 Allergy status to narcotic agent
CPT/HCPCS: 96375; 96413; 96415; J1200; J2919; J9312

== ENCOUNTER → 2023-12-18 | Outpatient (REF) | payer BC, OTHER ==
[~2023-12-18] MED LIST changes: -ALBUTEROL SULFATE 2.5MG/0.5ML INH NEB SOLN INH PRN; -EPINEPHrine INJ 1 MG/ML 1ML AMP IM PRN; -NS 1,000 ML IV SCH; -POTA10CA60 PO; +POTA10CA70 PO; -diphenhydrAMINE 50MG/ML VIAL IV PRN; -methylPREDNISolone 125MG 2ML VIAL IV PRN
== END ==
LOC: M LAB REF 17:51
PROVIDERS: ATTEND Internal Medicine Nephrology
DX: Z94.0 Kidney transplant status (principal)

== ENCOUNTER → 2024-12-14 | Outpatient (REF) | payer BC, OTHER | LOC: M LAB REF 17:23 | PROVIDERS: ATTEND Internal Medicine Nephrology | DX: Z94.0 Kidney transplant status (principal) ==